=== PATIENT | female | born 2000 | race Caucasian/White ===

== ENCOUNTER 2018-05-23 10:44 | Emergency (ER) | payer OTHER ==
[2018-05-23 11:09] VITALS: BP 98/62
[2018-05-23 13:16] LABS: PLATELET COUNT 321 10^3/uL (150-400)
--- NOTE | 2018-05-23 14:25 | EDPHY ---
H & P Smoking Status: Never smoked Time Seen by Provider: 05/23/18 12:41 HPI/ROS: CHIEF COMPLAINT: Abdominal pain, vaginal bleeding HISTORY OF PRESENT ILLNESS: 17-year-old female presents to the emergency department with lower abdominal pain. The patient is concerned about a displaced IUD. She has had her IUD for over 1 year. She had intercourse this morning and was having pain afterwards and felt like she heard a loud noise and was concerned that her IUD became displaced. She had small amount of vaginal bleeding and only use the light had. She feels like this is mostly resolved. No fevers or chills. No vomiting. No diarrhea. No chest pain or difficulty breathing. The patient was initially not very concerned about sexually transmitted infections but is requesting treatment. Her partner does not have any symptoms. She denies . No urinary symptoms. REVIEW OF SYSTEMS: Constitutional: No fever, no chills. Eyes: No double or blurry vision. ENT: No sore throat. Respiratory: No cough, no shortness of breath. Cardiac: No chest pain. Gastrointestinal: Abdominal pain as above. No vomiting or diarrhea. Genitourinary: No dysuria. Musculoskeletal: No neck or back pain. Skin: No rashes. Neurological: No headache. (Marly Hay) Past Medical/Surgical History: Negative (Marly Hay) Social History: [employer] student (Marly Hay) Physical Exam: General Appearance: Alert, no distress. Eyes: Pupils equal and round. Extraocular motions are all intact. ENT: Mouth: Mucous membranes moist. Respiratory: No wheezing, rhonchi, or rales, lungs are clear to auscultation. Cardiovascular: Regular rate and rhythm. Gastrointestinal: Abdomen is soft and nontender, no masses, no rebound or guarding, bowel sounds normal. Genitourinary: Deferred Neurological: Alert and oriented x 3, cranial nerves II through XII grossly intact Skin: Warm and dry, no rashes. Musculoskeletal: Nontender to palpate along the cervical, thoracic or lumbar spine. Neck is supple. Extremities: Full range of motion and no peripheral edema. Psychiatric: Patient is oriented X 3, there is no agitation. (Marly Hay) Constitutional: Initial Vital Signs Temperature (C) 36.9 C 05/23/18 11:05 Heart Rate 75 05/23/18 11:05 Respiratory Rate 18 05/23/18 11:05 Blood Pressure 98/62 L 05/23/18 11:05 O2 Sat (%) 96 05/23/18 11:05 O2 Delivery Mode Room Air Allergies/Adverse Reactions: salmon Allergy (Uncoded 05/23/18 11:05) Home Medications: Medication Instructions Recorded Iud 05/23/18 Some Antibx 05/23/18 Medical Decision Making - Diagnostics Imaging: Discussed imaging studies w/ call specialist Radiologist ED Course/Re-evaluation: 17-year-old female presents to the emergency department with concerns about a displaced [employer]. She had a pelvic ultrasound which revealed normal appearing IUD in good placement. No signs of ovarian cyst or torsion. Urinalysis reveals no signs of infection. Laboratory studies are unremarkable. She feels comfortable being discharged home. She has not had any recurring vaginal bleeding. (Marly Hay) I did not see this patient while she was in the emergency department. However her care was discussed with the PA while the patient was in the department. I agree with treatment plan and management (Derrick Barker) Differential Diagnosis: Including but not limited to ovarian cyst, ovarian torsion, urinary tract infection, pyelonephritis, kidney stone, sexually transmitted infection, displaced IUD (Marly Hay) - Data Points Laboratory Results: Laboratory Results 05/23/18 13:00 05/23/18 13:00 05/23/18 13:10 C.trachomatis RNA (TMA) NEGATIVE (NEGATIVE) N.gonorrhoeae RNA (TMA) NEGATIVE (NEGATIVE) Departure - Departure Disposition: Home, Routine, Self-Care Clinical Impression: Abdominal pain, IUD (intrauterine device) in place Condition: Good Instructions: Acute Abdominal Pain (ED) Additional Instructions: Pelvic rest until pain has completely resolved. Call [phone] for the results of your gonorrhea and chlamydia tests in 48 hr. Ibuprofen 600 mg every 8 hr as needed for pain. Abdominal Pain: Return to the Emergency Department immediately for increasing pain, fever, vomiting, or if not completely better in 8-12 hours. 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
[2018-05-24 11:57] LABS: GC AMPLIFICATION GENPROBE NEGATIVE (NEGATIVE)
== END 2018-05-23 14:38 | disposition home or self-care (01) ==
DX: R10.10 Upper abdominal pain, unspecified (principal); Z30.431 Encounter for routine checking of intrauterine contraceptive device